=== PATIENT | male | born 1965 | race Caucasian/White ===

== ENCOUNTER 2017-02-25 11:20 | Observation (INO) | payer OTHER ==
[2017-02-25] MEDS: NS 0.9% 1000 ML* 3,000 ML IV ONE ×2 (11:20→11:47)
[2017-02-25] MEDS ORDERED: NS 0.9% 1000 ML* 2,000 ML IV ONE (11:24)
[2017-02-25] MEDS ORDERED: Aspirin Low Dose CHEW TAB* 81 MG PO ONE (11:24)
[2017-02-25 12:07] LABS: Hematocrit 50 % (42-52); Hemoglobin 16.9 g/dl (14.0-18.0); Mean Corpuscular HGB Conc 34 g/dl (31-36); Mean Corpuscular Hemoglobin 32 pg (27-31); Mean Corpuscular Volume 95 fL (80-94); Mean Platelet Volume 9 um3 (7.4-10.4); Red Cell Distribution Width 13 % (10.5-15); White Blood Count 9.2 10^3/ul (3.5-10.8)
--- NOTE | 2017-02-25 12:21 | RAD ---
INDICATION: Chest pain COMPARISON: September 04, 2009 TECHNIQUE: An AP portable view obtained at 1205 hours is submitted. FINDINGS: Bones/Soft Tissues: There are no acute bony findings. Cardiomediastinal: The cardiomediastinal silhouette is normal. Lungs: There are no infiltrates. Pleura: There are no pleural effusions. Other: None IMPRESSION: NO ACTIVE DISEASE.
[2017-02-25 12:23] LABS: Albumin 4.5 g/dL (3.2-5.2); BUN/Creatinine Ratio 24.2 (8-20); Calcium 9.6 mg/dL (8.6-10.3); EGFR African American 113.9 (>60); EGFR Non-African American 88.6 (>60); Globulin 2.7 g/dL (2-4); Total Bilirubin 0.9 mg/dL (0.2-1.0); Total Protein 7.2 g/dL (6.4-8.9)
[2017-02-25] MEDS ORDERED: Insulin REGULAR(*) 1 UNITS UNIT IV PUSH ONE (13:00)
[2017-02-25 14:03] LABS: Venous Bicarbonate HCO3 26.3 mmol/L (24-28)
[2017-02-25] MEDS ORDERED: Temazepam CAP* 15 MG PO PRN (14:24)
[2017-02-25] MEDS ORDERED: Acetaminophen TAB* 325 MG PO PRN (14:24)
[2017-02-25] MEDS ORDERED: Dextrose 50% Syringe 50 ML* 25 GM/50 ML SYRINGE IV PUSH PRN (14:26)
[2017-02-25] MEDS ORDERED: Insulin GLARGINE(*) 1 UNITS UNIT SUBCUT SCH (15:00)
--- NOTE | 2017-02-25 15:45 | ED ---
Speedy Pritchett Billy, scribed for Kirill Lopez MD on 02/25/17 at 1314 . HPI Diabetic - HPI Summary HPI Summary: Patient is a 51 year-old male with a history of uncontrolled DM coming to [facility] for evaluation of dizziness and left-sided chest pressure today since 1000. At onset, he also reports feeling disoriented and unsteady on his feet. Patient has chronic bilateral feet numbness. Denies any other symptoms such as fevers, chills, myalgias, arthralgias, palpitations, abdominal pain, blood in the stool. Denies any tongue-biting or incontinence today. Patient is a heavy smoker and occasional drinker. - History Of Current Complaint Chief Complaint: EDAltMentalStatus Time Seen by Provider: 02/25/17 11:23 Hx Obtained From: Patient Onset/Duration: Gradual Onset, Lasting Hours, Still Present Timing: Constant Severity Initially: Moderate Severity Currently: Moderate Character: Confused Aggravating: Non-compliant Alleviating: Nothing - Allergies/Home Medications Allergies/Adverse Reactions: Allergies Allergy/AdvReac Type Severity Reaction Status Date / Time No Known Allergies Allergy Verified 02/25/17 11:29 PMH/Surg Hx/FS Hx/Imm Hx Endocrine/Hematology History: Reports: Hx Diabetes Cardiovascular History: Denies: Hx Myocardial Infarction Neurological History: Denies: Hx CVA Infectious Disease History: No Infectious Disease History: Denies: Traveled Outside the [place] in Last 30 Days - Family History Known Family History: Positive: Unknown - Patient is adopted. - Social History Alcohol Use: Occasionally Substance Use Type: Reports: None Smoking Status (MU): Heavy Every Day Tobacco Smoker Review of Systems Negative: Fever, Chills Positive: Chest Pain - left-sided. Negative: Palpitations Negative: Shortness Of Breath Negative: Abdominal Pain Negative: Arthralgia, Myalgia Neurological: Other - dizziness, disoriented, unsteady on feet Positive: Numbness All Other Systems Reviewed And Are Negative: Yes Physical Exam - Summary Physical Exam Summary: The patient is well-nourished in no acute distress and in no acute pain. No fruity breath appreciated. The skin is warm and dry and skin color reflects adequate perfusion. Decreased turgor. HEENT: The head is normocephalic and atraumatic. The pupils are equal and reactive. The conjunctivae are clear and without drainage. Nares are patent and without drainage. Mouth reveals dry mucous membranes and the throat is without erythema and exudate. The external ears are intact. The ear canals are patent and without drainage. The tympanic membranes are intact. Neck is supple with full range of motion and non-tender. There are no carotid bruits. There is no neck vein distension. Respiratory: Chest is non-tender. Lungs are clear to auscultation and breath sounds are symmetrical and equal. Cardiovascular: Heart is tachycardic. There is no murmur or rub auscultated. There is no peripheral edema and pulses are symmetrical and equal. Abdomen: The abdomen is soft and non-tender. There are normal bowel sounds heard in all four quadrants and there is no organomegaly palpated. Musculoskeletal: There is no back pain noted. Extremities are non-tender with full range of motion. There is 3 sec capillary refill. There is no peripheral edema or calf tenderness elicited. Neurological: Patient is alert and oriented to person, place and time. The patient has symmetrical motor strength in all four extremities. Cranial nerves are grossly intact. Deep tendon reflexes are symmetrical and equal in all four extremities. Psychiatric: The patient has an appropriate affect and does not exhibit any anxiety or depression. Triage Information Reviewed: Yes Vital Signs On Initial Exam: Initial Vitals Temp Pulse Resp BP Pulse Ox 99.6 F 130 20 186/94 99 02/25/17 11:26 02/25/17 11:26 02/25/17 11:26 02/25/17 11:26 02/25/17 11:26 Vital Signs Reviewed: Yes - Ale Coma Scale Coma Scale Total: 15 Diagnostics - Vital Signs Vital Signs Temp Pulse Resp BP Pulse Ox 02/25/17 11:48 99.6 F 126 18 179/90 99 02/25/17 11:43 135 20 100 02/25/17 11:41 179/90 02/25/17 11:26 99.6 F 130 20 186/94 99 - Laboratory Lab Results: Lab Results 02/25/17 02/25/17 02/25/17 Range/Units 11:28 11:28 11:28 WBC 9.2 (3.5-10.8) 10^3/ul RBC 5.30 (4.0-5.4) 10^6/ul Hgb 16.9 (14.0-18.0) g/dl Hct 50 (42-52) % MCV 95 H (80-94) fL MCH 32 H (27-31) pg MCHC 34 (31-36) g/dl RDW 13 (10.5-15) % Plt Count 263 (150-450) 10^3/ul MPV 9 (7.4-10.4) um3 Neut % (Auto) 57.1 (38-83) % Lymph % (Auto) 35.8 (25-47) % Navarro % (Auto) 6.1 (1-9) % Eos % (Auto) 0.4 (0-6) % Baso % (Auto) 0.6 (0-2) % Absolute Neuts (auto) 5.3 (1.5-7.7) 10^3/ul Absolute Lymphs (auto) 3.3 (1.0-4.8) 10^3/ul Absolute Monos (auto) 0.6 (0-0.8) 10^3/ul Absolute Eos (auto) 0 (0-0.6) 10^3/ul Absolute Basos (auto) 0.1 (0-0.2) 10^3/ul Absolute Nucleated RBC 0.01 10^3/ul Nucleated RBC % 0.1 INR (Anticoag Therapy) 0.92 (0.89-1.11) D-Dimer, Quantitative < 200 (Less Than 230) ng/mL VBG pH (7.33-7.43) VBG pCO2 (41-51) mmHg VBG pO2 (35-45) mmHg VBG HCO3 (24-28) mmol/L VBG O2 Saturation (70-80) % VBG Base Excess (0-4) Sodium 134 (133-145) mmol/L Potassium 4.0 (3.5-5.0) mmol/L Chloride 95 L (101-111) mmol/L Carbon Dioxide 28 (22-32) mmol/L Anion Gap 11 (2-11) mmol/L BUN 22 (6-24) mg/dL Creatinine 0.91 (0.67-1.17) mg/dL Est GFR ( Amer) 113.9 (>60) Est GFR (Non-Af Amer) 88.6 (>60) BUN/Creatinine Ratio 24.2 H (8-20) Glucose 503 H* (70-100) mg/dL Lactic Acid (0.5-2.0) mmol/L Calcium 9.6 (8.6-10.3) mg/dL Magnesium 2.0 (1.9-2.7) mg/dL Total Bilirubin 0.90 (0.2-1.0) mg/dL AST 10 L (13-39) U/L ALT 13 (7-52) U/L Alkaline Phosphatase 67 (34-104) U/L Troponin I 0.00 (<0.04) ng/mL B-Natriuretic Peptide ( - 100) pg/mL Total Protein 7.2 (6.4-8.9) g/dL Albumin 4.5 (3.2-5.2) g/dL Globulin 2.7 (2-4) g/dL Albumin/Globulin Ratio 1.7 (1-3) 02/25/17 02/25/17 02/25/17 Range/Units 11:28 11:28 13:47 WBC (3.5-10.8) 10^3/ul RBC (4.0-5.4) 10^6/ul Hgb (14.0-18.0) g/dl Hct (42-52) % MCV (80-94) fL MCH (27-31) pg MCHC (31-36) g/dl RDW (10.5-15) % Plt Count (150-450) 10^3/ul MPV (7.4-10.4) um3 Neut % (Auto) (38-83) % Lymph % (Auto) (25-47) % Navarro % (Auto) (1-9) % Eos % (Auto) (0-6) % Baso % (Auto) (0-2) % Absolute Neuts (auto) (1.5-7.7) 10^3/ul Absolute Lymphs (auto) (1.0-4.8) 10^3/ul Absolute Monos (auto) (0-0.8) 10^3/ul Absolute Eos (auto) (0-0.6) 10^3/ul Absolute Basos (auto) (0-0.2) 10^3/ul Absolute Nucleated RBC 10^3/ul Nucleated RBC % INR (Anticoag Therapy) (0.89-1.11) D-Dimer, Quantitative (Less Than 230) ng/mL VBG pH 7.34 (7.33-7.43) VBG pCO2 58 H (41-51) mmHg VBG pO2 29 L (35-45) mmHg VBG HCO3 26.3 (24-28) mmol/L VBG O2 Saturation 51.3 L (70-80) % VBG Base Excess 3.7 (0-4) Sodium (133-145) mmol/L Potassium (3.5-5.0) mmol/L Chloride (101-111) mmol/L Carbon Dioxide (22-32) mmol/L Anion Gap (2-11) mmol/L BUN (6-24) mg/dL Creatinine (0.67-1.17) mg/dL Est GFR ( Amer) (>60) Est GFR (Non-Af Amer) (>60) BUN/Creatinine Ratio (8-20) Glucose (70-100) mg/dL Lactic Acid 3.5 H* (0.5-2.0) mmol/L Calcium (8.6-10.3) mg/dL Magnesium (1.9-2.7) mg/dL Total Bilirubin (0.2-1.0) mg/dL AST (13-39) U/L ALT (7-52) U/L Alkaline Phosphatase (34-104) U/L Troponin I (<0.04) ng/mL B-Natriuretic Peptide 20 ( - 100) pg/mL Total Protein (6.4-8.9) g/dL Albumin (3.2-5.2) g/dL Globulin (2-4) g/dL Albumin/Globulin Ratio (1-3) Result Diagrams: 02/25/17 11:28 02/25/17 11:28 Lab Statement: Any lab studies that have been ordered have been reviewed, and results considered in the medical decision making process. - Radiology CXR Xray Interpretation: No Acute Changes Radiology Interpretation Completed By: Radiologist - EKG 1114 EKG Interpretation: sinus tachycardia 140 bpm, nonspecific ST changes, normal axis Re-Evaluation - Re-Evaluation First Eval Re-Evaluation Time: 13:25 Comment: Labs reviewed. patient reluctantly agreed to stay. Diabetic Course/Dx - Course Assessment/Plan: 51 y/o male to the ED with a complaint of chest pain, disorientation. EKG shows sinus tachycardia with nonspecific ST changes. CXR shows no acute findings. In the ED course, patient was given aspirin and insulin as well as IV fluids for hydration. Labs reviewed, patient had glucose of 503 and lactic acid of 3.5. Patient care discussed with Dr. Wooten who accepted the patient for admission. - Diagnoses Differential Dx: Acute VA, Diabetic Ketoacidosis, Hyperglycemia, Other - tachycardia, pe, pneumonia, syncope Provider Diagnoses: Chest pain, Hyperglycemia, Lactic acidosis - Physician Notifications Discussed Care of Patient With: Dr. Wooten (hospitalist) @ 1330: accepts admission. Discharge - Discharge Plan Condition: Stable Disposition: ADMITTED TO [facility] documentation as recorded by the Speedy schuler Billy accurately reflects the service I personally performed and the decisions made by , Kirill Lopez MD.
[2017-02-25] MEDS: NS 0.9% 1000 ML* 1,000 ML IV SCH ×2 (15:52→22:55)
[2017-02-25] MEDS: Insulin LISPRO* 1 UNITS UNIT SUBCUT SCH ×4 (16:07→22:33)
[2017-02-25] MEDS: metFORMIN* 500 MG TAB PO SCH (16:10)
--- NOTE | 2017-02-25 20:11 | HP ---
HISTORY AND PHYSICAL: DATE OF ADMISSION: 02/25/17 PRIMARY CARE PROVIDER: None. CHIEF COMPLAINT: Altered mental status and chest pressure. HISTORY OF PRESENT ILLNESS: Mr. Noyola is a 51-year-old male who was diagnosed with diabetes sever al years ago and who decided to "beat it by himself." He stated that he had insurance issues at [facility] and he stopped seeing his physicians and treating his diabetes. The patient is a very vague historian but stated that he last saw a doctor "several years ago." He stated that he had been fee ling fine and had no complaints. He denies any visual complaints and denies polyuria but he does ad malcolm to polydipsia. He stated that he may have lost some weight in the past several months. Today, the patient remembers the accounts of today's earlier day very vaguely. He stated that he dr ank his coffee and went to work and he felt poorly. He was noted to be stumbling around and confuse d. Apparently, he complained of chest pressure. He stated that the chest pressure lasted "seconds" and was localized in his left breast. His coworkers called the ambulance and the ambulance crew brought the patient to the hospital. It w as noted that the patient's sugars were over 500. He is going to be admitted with the diagnosis of hyperosmolar state and chest pain. He is going to be placed on observation on telemetry monitored b ed. PAST MEDICAL HISTORY: 1. Diabetes diagnosed "several years ago" untreated. 2. Pilonidal cyst removed from the patient's back several years ago. MEDICATIONS: None. ALLERGIES: No known drug allergies. FAMILY HISTORY: Unknown. The patient is adopted. SOCIAL HISTORY: The patient lives alone. He is adopted. His adopted mother would be his healthcar e proxy. Her name is Saundra Noyola. He states that he smokes a pack and half a day and he drink s a 6 pack at a time but usually not on an every day basis. That is in regard to the patient's alco hol use. He denies any drug use. 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 REVIEW OF SYSTEMS: Please see history of present illness. All the remaining 14 systems were review ed with the patient and were otherwise negative. Specifically, the patient right now denies chest p ain or shortness of breath. He feels hungry. He did note that his feet were getting numb in the pas t several months. PHYSICAL EXAMINATION GENERAL: The patient is a very pleasant 51-year-old male who is a rather vague historian. The herberth ent is in no acute distress, alert, awake, and oriented x3. VITAL SIGNS: Blood pressure of 126/78, heart rate of 104 and regular, respiratory rate 16, oxygen s aturation 99% on room air, temperature of 99.6. HEENT: Head: Atraumatic, normocephalic. Eyes: Pupils are equal, reactive to light and accommodat ion. Oropharynx clear. Mucosa dry. NECK: Supple. No JVD. No bruits bilaterally. RESPIRATORY: Clear to auscultation bilaterally. CARDIOVASCULAR: Regular rate and rhythm. No murmur. ABDOMEN: Soft, nontender. Positive bowel sounds in all 4 quadrants. EXTREMITIES: There is no edema. Pulses are +2 bilaterally. No clubbing or cyanosis. NEUROLOGIC: Speech clear. Cranial nerves II through XII grossly intact. Motor strength is 5/5 nadiya aterally. SKIN: Upon evaluation of the skin, no ecchymotic areas or rashes noted. PSYCHIATRIC: Alert, awake, and oriented x3, with no evidence of anxiety or depression. DIAGNOSTIC STUDIES/LAB DATA: Sodium 134, potassium 4.0, chloride 95, carbon dioxide 28, BUN 22, an d creatinine of 0.9. Liver function tests were unremarkable. Lactic acid of 3.5. Glucose of 5.3. Brain natriuretic peptide was 20. Troponin of 0. CBC: White blood cell count of 9.2, hemoglobin o f 16.9, hematocrit of 50, platelets 263. D-dimer was below 200. VBG showed pH of 7.34, PCO2 of 58, PO2 of 29, bicarb of 26. Portable chest x-ray showed no active disease. The patient's EKG showed sinus tachycardia with a heart rate of 140 with nonspecific changes in ante rolateral leads most likely tachycardia related. There was no old EKG available in our system. ASSESSMENT AND PLAN: 1. A period of confusion in the patient who presented with sugar of over 500 and untreated diabetes for several years. I suspect the patient is in hyperosmolar state. It now resolved after initial intravenous fluid resuscitation. The patient is willing to be placed on overnight observation. I s uspect that he may actually be well controlled on oral hypoglycemics, but for the time being the pat ient is going to be placed on insulin Lantus as well as sliding scale. I will start metformin in th e evening. Diabetic education is going to be provided in regards to nutrition. I will also ask [facility] staff to educate the patient in regards to fingersticks and insulin administration just in case . 2. I will continue intravenous hydration with normal saline at 175 mL an hour. 3. In regards to the patient's history of chest pain, apparently it lasted seconds. His EKG is non specific and currently he is chest pain free. We will follow up with troponins and place the patien t on telemetry monitored bed. 4. For DVT prophylaxis, the patient is going to be placed on ambulation. He is low risk. 5. Code status. The patient's code status is full. His surrogate is his mother. TIME SPENT: Approximately 65 minutes was spent on admission of this patient; more than half of that time was spent [id number] with the patient during the interview and physical exam. [id number]/[facility] #: [id number]
[2017-02-25] MEDS ORDERED: Mouth Piece, Nicotine* 1 EACH CARTRIDGE ONE (22:49)
[2017-02-25] MEDS: Nicotine Inhaler* 10 MG AMP INH PRN (22:55)
[2017-02-26] MEDS: Insulin LISPRO* 1 UNITS UNIT SUBCUT SCH ×2 (02:13→05:47)
[2017-02-26] MEDS: NS 0.9% 1000 ML* 1,000 ML IV SCH (05:32)
[2017-02-26 05:40] LABS: Hematocrit 39 % (42-52); Hemoglobin 13.7 g/dl (14.0-18.0); Mean Corpuscular HGB Conc 35 g/dl (31-36); Mean Corpuscular Hemoglobin 33 pg (27-31); Mean Corpuscular Volume 95 fL (80-94); Mean Platelet Volume 9 um3 (7.4-10.4); Red Blood Count 4.13 10^6/ul (4.0-5.4); Red Cell Distribution Width 13 % (10.5-15); White Blood Count 9.5 10^3/ul (3.5-10.8)
[2017-02-26 05:58] LABS: BUN/Creatinine Ratio 26.3 (8-20); Calcium 8.5 mg/dL (8.6-10.3); EGFR African American 132.1 (>60); EGFR Non-African American 102.7 (>60)
[2017-02-26] MEDS: metFORMIN* 500 MG TAB PO SCH (07:18)
[2017-02-26] MEDS: Nicotine Inhaler* 10 MG AMP INH PRN (11:27)
[2017-02-26] MEDS ORDERED: Insulin LISPRO* 1 UNITS UNIT SUBCUT SCH (11:30)
[2017-02-26 11:38] VITALS: BP 110/79
--- NOTE | 2017-02-27 03:32 | DS ---
DISCHARGE SUMMARY: DATE OF ADMISSION: 02/25/17 DATE OF DISCHARGE: 02/26/17 PRIMARY CARE PROVIDER: None. DISCHARGE DIAGNOSES: 1. Transient alteration of consciousness due to hyperosmolar nonketotic state in a patient with unc ontrolled diabetes type 2. 2. Dehydration. SECONDARY DIAGNOSIS: History of diabetes type 2 diagnosed several years ago. The patient decided t o stop taking his medications several years ago. MEDICATION AT DISCHARGE: Include metformin 500 mg b.i.d. LABORATORY DATA PERFORMED ON THE DAY OF DISCHARGE: Includes white blood cell count of 9.5, hemoglob in of 13.7, hematocrit of 39, and platelets of 210. Sodium was 134, potassium 4.0, chloride 105, carbon dioxide 25, BUN 21, creatinine 0.8. Glucose in the morning was 193. The patient's glucose before discharge 153. HOSPITALIZATION COURSE: Tan Noyola is a 51-year-old male with a history of diabetes diagnosed se veral years ago, who had insurance problems at that time and decided to "just deal with it" without taking his medications. He had not been adhering to a diabetic diet. He presented to the hospital after his coworkers noted for him to be confused and complaining of chest pressure. He came to the hospital. He was noted to be markedly hypertensive, tachycardic with a sugar of over 500. The herberth ent was also noted to have lethargy. His mental status improved markedly after initial intravenous fluid boluses. By the time of actual admission, he was oriented x3. He was placed on observation o n telemetry monitored bed. The patient could not further remember the specifics of his chest pressu re, but he was nevertheless placed on telemetry monitored bed and his troponins continued to be nega tive throughout his hospital stay. Furthermore, he did not have any evidence of arrhythmia and he r emained chest pain free throughout his hospital stay. The patient was placed on metformin at 500 mg twice a day. He also received initially a dose of ins ulin. After overnight intravenous hydration, the patient's sugars normalized pretty nicely and by t he time of discharge, his sugars were in the 150 to 200 range. He is going to be discharged on metf ormin at 500 mg b.i.d. Prior to discharge, the patient received diabetic nutrition. He already knew how to use glucometer. He was prescribed glucometer strips as well as glucometer itself and lancets. Unfortunately tj bustamante weekend, we do not have cell room supervisor per se. Our office is going to schedule an appointm ent for the patient for an outpatient physician to be seen for primary care within the next 7 days a fter discharge. PHYSICAL EXAMINATION: Blood pressure of 110/79, heart rate of 82 and regular, respiratory rate 16, oxygen saturation 100% on room air, temperature 97.1. General Appearance: The patient is a pleasan t 51-year-old male, who is in no acute distress. Awake, alert, and oriented x3. HEENT: Head atrau matic and normocephalic. Eyes: Pupils equal, reactive to light and accommodation. Oropharynx clear . Mucosa moist. Neck: Supple. No JVD, no bruits bilaterally. Cardiovascular: Regular rate and r hythm. No murmur. Respiratory: Clear to auscultation bilaterally. Abdomen: Soft, nontender. Raz wel sounds present in all 4 quadrants. Extremities: There is no edema. Pulses +2 bilaterally. No clubbing or cyanosis. Neuro Evaluation: Speech clear. Cranial nerves II through XII grossly intac t. Motor strength is 5/5 bilaterally. LAB WORK PENDING AT DISCHARGE: Includes hemoglobin A1c. Please note that this is a short summary of the patient's hospital stay. Please refer to further sc dical records for details. [id number]/[facility] #: [id number]
== END 2017-02-26 13:30 | disposition home or self-care (01) ==
LOC: ED 11:20 → MEDTELE 14:30
PROVIDERS: ADMIT Internal Medicine; ATTEND Internal Medicine
DX: E72.51 Non-ketotic hyperglycinemia (principal); E11.9 Type 2 diabetes mellitus without complications; E86.0 Dehydration; Z91.14 Patient's other noncompliance with medication regimen
CPT/HCPCS: 36415; 71010; 80048; 80053; 82803; 83036; 83605; 83735; 83880; 84484; 85025; 85379; 85610; 93005; 96361; 99283; A9270-GY; G0378

== ENCOUNTER 2017-08-01 16:04 | Emergency (ER) | payer SELFPAY ==
--- NOTE | 2017-08-01 18:14 | ED ---
Upper Extremity Pain - HPI Summary HPI Summary: Patient is an otherwise healthy 51yo M who presents to the ED with CC of right shoulder pain. He was recently dx last week with calcific tendonitis and was given 2 weeks off work, follow up to his regular PCP and a sling. He was told to place ice over the area. He arrives today with worsening pain and unable to sleep with the amount of pain that is present. The pain began suddenly and has not gotten better or worse with rest x 5 days. 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 He is unable to abduct at the shoulder and pain is 10/10 on palpation of the anterior just inferior to the acromion and throughout the deltopectoral triangle. Pain is 5/10 at rest. He has not been taking any medications for relief, but has been using ice without improvement. He notes to his PCP possibly performing a steroid injection at his next appt in 3 days, but states he is unable to wait that long for relief of pain. Denies any health problems, but takes metformin for type 2 diabetes which is controlled. Denies allergies or other medications. - History of Current Complaint Chief Complaint: EDExtremityUpper Stated Complaint: RT SHOULDER PAIN Time Seen by Provider: 08/01/17 17:46 Hx Obtained From: Patient Mechanism Of Injury: Unknown Onset/Duration: Started Days Ago Timing: Constant Severity Initially: Severe Severity Currently: Severe Pain Location: Shoulder Character: Aching, Throbbing Aggravating Factor(s): Movement, Lifting, Flexion, Abduction Alleviating Factor(s): Nothing Associated Signs & Symptoms: Positive: Swelling Related History: Dominant Hand Right - Risk Factors Non-Orthopedic Risk Factor: Negative DVT Risk Factors: Negative Septic Arthritis Risk Factor: Negative Compartment Syndrome Risk Factors: Pain - Allergies/Home Medications Allergies/Adverse Reactions: Allergies Allergy/AdvReac Type Severity Reaction Status Date / Time No Known Allergies Allergy Verified 02/25/17 11:29 PMH/Surg Hx/FS Hx/Imm Hx Previously Healthy: Yes Endocrine/Hematology History: Reports: Hx Diabetes Cardiovascular History: Denies: Hx Myocardial Infarction Sensory History: Reports: Hx Contacts or Glasses - Glasses Denies: Hx Hearing Aid Opthamlomology History: Reports: Hx Contacts or Glasses - Glasses Neurological History: Denies: Hx CVA - Immunization History Hx Pertussis Vaccination: No Immunizations Up to Date: Unable to Obtain/Confirm Infectious Disease History: No Infectious Disease History: Denies: Traveled Outside the [place] in Last 30 Days - Family History Known Family History: Positive: Unknown - Patient is adopted. - Social History Occupation: Employed Full-time Lives: With Family Alcohol Use: Occasionally Hx Substance Use: No Substance Use Type: Reports: None Hx Tobacco Use: Yes Smoking Status (MU): Heavy Every Day Tobacco Smoker Review of Systems Constitutional: Negative Eyes: Negative Respiratory: Negative Gastrointestinal: Negative Positive: no symptoms reported, see HPI Positive: Arthralgia, Decreased ROM. Negative: Myalgia, Edema Skin: Negative Neurological: Negative Negative: Weakness, Paresthesia Psychological: Normal All Other Systems Reviewed And Are Negative: Yes Physical Exam Triage Information Reviewed: Yes Vital Signs On Initial Exam: Initial Vitals Temp Pulse Resp BP Pulse Ox 97.8 F 125 18 136/83 96 08/01/17 16:05 08/01/17 16:05 08/01/17 16:05 08/01/17 16:05 08/01/17 16:05 Vital Signs Reviewed: Yes Appearance: Positive: Well-Appearing, Well-Nourished Skin: Positive: Warm, Skin Color Reflects Adequate Perfusion Head/Face: Positive: Normal Head/Face Inspection Eyes: Positive: EOMI, MYRIAM, Conjunctiva Clear Neck: Positive: Supple, Nontender, No Lymphadenopathy Respiratory/Lung Sounds: Positive: Clear to Auscultation, Breath Sounds Present Cardiovascular: Positive: Normal, RRR, Pulses are Symmetrical in both Upper and Lower Extremities Musculoskeletal: Positive: Pain @ - anterior right shoulder pain and limited ROM Neurological: Positive: Speech Normal Psychiatric: Positive: Normal Diagnostics - Vital Signs Vital Signs Temp Pulse Resp BP Pulse Ox 08/01/17 16:47 99.9 F 112 18 133/78 97 08/01/17 16:05 97.8 F 125 18 136/83 96 - Laboratory Lab Statement: Any lab studies that have been ordered have been reviewed, and results considered in the medical decision making process. Course/Dx - Course Course Of Treatment: Anterior shoulder pain with limited ROM. Recent dx of calcific tendonitis. He has a follow up with his PCP in 3 days, but states he is unable to wait until that time. He is requesting pain relief. Shoulder abduction with pain and 10/10 pain on palpation over the deltapectoral triangle. Denies numbness, tingling or color changes. Denies any trauma. Likely an overuse injury with calcific deposits and changes. Discussed overuse injuries, timelines for healing and improtance of not heavy lifting, pushing or pulling. Patient is encouraged to use Ibuprofen 600mg three times daily and if symptoms still do not improve, he is able to use the percoset which has been prescribed. 3 day limit given. He is to follow up with his PCP, but I have encouraged an orthopedic follow up if symptoms persist. - Diagnoses Differential Diagnosis/HQI/PQRI: Positive: Arthritis, Bursitis, Contusion Provider Diagnoses: Calcific tendinitis of right shoulder Discharge - Discharge Plan Condition: Stable Disposition: HOME Prescriptions: oxyCODONE/Acetamin 10/325(NF) [Percocet 10/325 (NF)] 1 tab PO Q6H PRN #12 tab MDD 4 PRN Reason: Pain Patient Education Materials: Calcific Tendinitis (ED) Referrals: Paul Elder MD [Primary Care Provider] - Chris Askew MD [Medical Doctor] - Additional Instructions: Dx. Calcific Tendonitis Ibuprofen 600mg three times daily with meals for discomfort. Return to ED if symptoms worsen or fail to improve, notice worsening swelling, warmth or redness around the joint, develop fever, or pain is uncontrolled with OTC medications. Moist heat to the area for comfort. Warm showers or baths may improve symptoms. It is important to remain mobile as tolerated to prevent stiffening of the joints and delay healing. Follow up with your PCP. If symptoms remain for > 6 weeks, please seek special medical attention from an orthopedic physician. Percoset has been given to you if symptoms are not relieved with OTC Ibuprofen. Slow shoulder movements are important to prevent stiffness, but do not do any heavy lifting, pushing or pulling until your symptoms have resolved. I have given you an orthopedic referral
[2017-08-01] MEDS ORDERED: HYDROcodone/ACETAMIN 5-325 MG* 1 TAB PO ONE (18:20)
[2017-08-01 18:32] VITALS: BP 128/70
== END 2017-08-01 18:31 | disposition home or self-care (01) ==
LOC: ED 16:04
DX: M75.31 Calcific tendinitis of right shoulder (principal); F17.210 Nicotine dependence, cigarettes, uncomplicated
CPT/HCPCS: 99282

== ENCOUNTER 2019-03-20 12:34 | Emergency (ER) | payer OTHER ==
--- NOTE | 2019-03-20 13:44 | ED ---
HPI Diabetic - HPI Summary HPI Summary: A 53 y/o male presents to [facility] with a chief complaint of feeling out of whack after not taking his insulin for his DM over the last three days. He also reports right scrotum pain, with swelling and redness over his scrotum. He denies fever, abdominal pain, CP or SOB. He denies smoking, EtOH or drug use. - History Of Current Complaint Chief Complaint: EDDiabeticProb Time Seen by Provider: 03/20/19 13:23 Hx Obtained From: Patient Onset/Duration: Sudden Onset, Lasting Days, Still Present Timing: Days Severity Initially: Mild Severity Currently: None Character: Alert Aggravating: Nothing Alleviating: Nothing Associated Signs & Symptoms: Negative - fever - Allergies/Home Medications Allergies/Adverse Reactions: Allergies Allergy/AdvReac Type Severity Reaction Status Date / Time No Known Allergies Allergy Verified 02/25/17 11:29 Home Medications: Home Medications glipiZIDE TAB* [Glucotrol TAB*] 5 mg PO BEDTIME 03/20/19 [History Confirmed ] glipiZIDE TAB* [Glucotrol TAB*] 10 mg PO QAM 03/20/19 [History Confirmed ] metFORMIN* [Glucophage 500 MG TAB *] 500 mg PO BID AC 03/20/19 [History Confirmed 03/20/19] PMH/Surg Hx/FS Hx/Imm Hx Endocrine/Hematology History: Reports: Hx Diabetes Cardiovascular History: Denies: Hx Myocardial Infarction Respiratory History: Denies: Hx Lung Cancer GI History: Denies: Hx Ileostomy History: Denies: Hx Dialysis Musculoskeletal History: Denies: Hx Osteoporosis Sensory History: Reports: Hx Contacts or Glasses - Glasses Denies: Hx Deafness, Hx Hearing Aid Opthamlomology History: Reports: Hx Contacts or Glasses - Glasses Neurological History: Denies: Hx CVA Psychiatric History: Denies: Hx Autism, Hx Schizophrenia Infectious Disease History: No Infectious Disease History: Denies: Traveled Outside the [place] in Last 30 Days - Family History Known Family History: Positive: Unknown - Patient is adopted. - Social History Alcohol Use: None Hx Substance Use: No Substance Use Type: Reports: None Hx Tobacco Use: Yes Smoking Status (MU): Heavy Every Day Tobacco Smoker Review of Systems Positive: Other - feeling "out of whack" after not taking insulin for 3 days. Negative: Fever Negative: Chest Pain Negative: Shortness Of Breath Negative: Abdominal Pain Positive: Other - positive: swelling and redness over right scrotum All Other Systems Reviewed And Are Negative: Yes Physical Exam - Summary Physical Exam Summary: Appearance: Well appearing, no pain distress Skin: warm, dry, swelling and redness over right side of scrotum, tenderness over scrotum, erythema over scrotum. swelling rt side scrotum Head/face: normal Eyes: EOMI, MYRIAM ENT: normal Neck: supple, non-tender Respiratory: CTA, breath sounds present Cardiovascular: RRR, pulses symmetrical Abdomen: non-tender, soft Musculoskeletal: normal, strength/ROM intact Neuro: normal, sensory motor intact, A&Ox3 Triage Information Reviewed: Yes Vital Signs On Initial Exam: Initial Vitals Temp Pulse Resp BP Pulse Ox 97.8 F 120 20 140/79 95 03/20/19 12:37 03/20/19 12:37 03/20/19 12:37 03/20/19 12:37 03/20/19 12:37 Vital Signs Reviewed: Yes Diagnostics - Vital Signs Vital Signs Temp Pulse Resp BP Pulse Ox 03/20/19 13:20 110 126/80 94 03/20/19 12:37 97.8 F 120 20 140/79 95 - Laboratory Result Diagrams: 03/20/19 15:06 03/20/19 15:06 Lab Statement: Any lab studies that have been ordered have been reviewed, and results considered in the medical decision making process. - Ultrasound No standard instances Ultrasound Interpretation Completed By: Radiologist Summary of Ultrasound Findings: Testicular ultrasound impression: There is a complex mass in the region of the palpable nodule measuring 4.7 x. 2.1 x 2.9 cm suspicious for abscess. No intratesticular masses are noted. ED physician has reviewed this imaging report. - EKG 16:29 Cardiac Rate: NL - 66 bpm EKG Rhythm: Sinus Rhythm Summary of EKG Findings: NSR at 66 bpm, no acute changes. Diabetic Course/Dx - Course Course Of Treatment: A 53 y/o male presents to [facility] with a chief complaint of feeling out of whack after not taking his insulin for his DM over the last three days. He also reports right scrotum pain, with swelling and redness over his scrotum. The physical exam revealed swelling and redness over right side of scrotum, tenderness over scrotum, erythema over scrotum. In the ED course the patient was given Zosyn IVPB. Testicular ultrasound impression: There is a complex mass in the region of the palpable nodule measuring 4.7 x. 2.1 x 2.9 cm suspicious for abscess. No intratesticular masses are noted. Blood work, chemistries and urines obtained. - Diagnoses Differential Dx: Hyperglycemia, Other - scrotal cellulitis Provider Diagnoses: Scrotal abscess, Cellulitis - Physician Notifications Discussed Care Of Patient With: Gt Valadez Time Discussed With Above Provider: 16:20 Instructed by Provider To: Other - recommended admission as long as IR here can work with the patient. - Critical Care Time Critical Care Time: 30-74 min Discharge - Sign-Out/Discharge Documenting (check all that apply): Patient Departure - transfer Patient Received Moderate/Deep Sedation with Procedure: No - Discharge Plan Condition: Fair Disposition: TRANS HIGHER LVL OF CARE FAC Referrals: Paul Elder MD [Primary Care Provider] - - Billing Disposition and Condition Condition: FAIR Disposition: Trans Higher Lvl of Care Fac - Attestation Statements Document Initiated by Scribe: Yes Documenting Scribe: Jaya Chung Provider For Whom Scribe is Documenting (Include Credential): Winston Conroy MD Scribe Attestation: I, Jaya Chung, scribed for Winston Conroy MD on 03/20/19 at 1751. Scribe Documentation Reviewed: Yes Provider Attestation: The documentation as recorded by the Jaya schuler accurately reflects the service I personally performed and the decisions made by me, Winston Conroy MD Status of Scribe Document: Viewed Consult Consult: At 16:[address] Powell who reports that IR cannot work with the patient. At 16:[address] Singh , urologist at [facility], who denied the patient for transfer. At 16:[address] Carney, surgeon, who said that he will not accept the patient. At 17:[address] Small, from [facility], accepted the patient.
[2019-03-20] MEDS ORDERED: ED Piperacillin/Tazobac 3.375 3.375 GM/100 ML PREMIX.SET IVPB ONE (13:46)
[2019-03-20] MEDS ORDERED: Piperacillin/Tazobac (*) 3.375 GM BAG ONE (14:37)
[2019-03-20 15:19] LABS: ABS Basophils 0.1 10^3/ul (0-0.2); ABS Eosinophils 0.1 10^3/ul (0-0.6); ABS Lymphocytes 1.8 10^3/ul (1.0-4.8); ABS Monocytes 0.8 10^3/ul (0-0.8); ABS Neutrophils 10.4 10^3/ul (1.5-7.7); ABS Nucleated RBC 0 10^3/ul; Eosinophil % 0.6 %; Hematocrit 49 % (36-46); Hemoglobin 16.8 g/dL (14.0-18.0); Lymphocyte % 13.7 %; Mean Corpuscular HGB Conc 35 g/dL (31-36); Mean Corpuscular Hemoglobin 32 pg (27-31); Mean Corpuscular Volume 93 fL (80-94); Mean Platelet Volume 8.7 fL (7.4-10.4); Nucleated Red Blood Cells % 0.1; Platelet Count 268 10^3/uL (150-450); Red Blood Count 5.24 10^6 /uL (4.18-5.48); Red Cell Distribution Width 13 % (10.5-15); White Blood Count 13.2 10^3/uL (3.5-10.8)
[2019-03-20 15:25] LABS: Urine Appearance Clear; Urine Bilirubin Negative (Negative); Urine Blood Negative (Negative); Urine Color Straw; Urine Glucose 3+(>=500 mg/dL) (Negative); Urine Ketones 1+ (Negative); Urine Nitrite Negative (Negative); Urine Protein Negative (Negative); Urine Specific Gravity 1.033 (1.010-1.030); Urine Urobilinogen Negative (Negative)
[2019-03-20 15:44] LABS: Activated Partial Thrombo Time 29.3 seconds (26.0-36.3); INR 0.94 (0.82-1.09)
[2019-03-20 16:02] LABS: Albumin 4.7 g/dL (3.2-5.2); Albumin/Globulin Ratio 1.5 (1-3); BUN/Creatinine Ratio 18.4 (8-20); C Reactive Protein 55.72 mg/L (<8.01); Calcium 9.6 mg/dL (8.6-10.3); EGFR African American 97.6 (>60); EGFR Non-African American 80.6 (>60); Globulin 3.2 g/dL (2-4); Potassium 4.1 mmol/L (3.5-5.0); Total Bilirubin 0.9 mg/dL (0.2-1.0); Total Protein 7.9 g/dL (6.4-8.9)
[2019-03-20] MEDS ORDERED: Clindamycin 600 MG/D5W BAG(*) 600 MG/50 ML BAG IV ONE (16:58)
[2019-03-20] MEDS ORDERED: Insulin REGULAR(*) 1 UNITS UNIT IV PUSH ONE (17:22)
[2019-03-20 17:49] VITALS: BP 127/81
[2019-03-20] MEDS ORDERED: Nicotine GUM* 2 MG PO PRN (18:02)
[2019-03-20] MEDS ORDERED: Nicotine GUM* 2 MG ONE (18:03)
== END 2019-03-20 18:32 | disposition short-term general hospital (02) ==
LOC: ED 12:34
DX: N49.2 Inflammatory disorders of scrotum (principal); E11.9 Type 2 diabetes mellitus without complications; Z79.4 Long term (current) use of insulin; Z72.0 Tobacco use
CPT/HCPCS: 36415; 76870; 80053; 81003; 83605; 85025; 85610; 85730; 86140; 87040; 96365; 96375; 99284; A9270-GY; J2543